=== PATIENT | male | born 1970 | race Caucasian/White ===

== ENCOUNTER 2019-01-11 14:17 | Emergency (ER) | payer SELFPAY ==
[~2019-01-11] VITALS: Ht 172.7 cm; Wt 78.3 kg
[2019-01-11 14:33] VITALS: Ht 172.7 cm; Wt 78.3 kg
[2019-01-11] MEDS ORDERED: LIDOCAINE 1% (MDV) 10 ML INJ INJ STA (17:01)
[2019-01-11] MEDS ORDERED: KETOROLAC 30 MG INJ IM STA (17:01)
[2019-01-11] MEDS ORDERED: LIDOCAINE 1% (MDV) 20 ML INJ SC ONE (17:30)
--- NOTE | 2019-01-11 18:33 | ERD ---
ER Documentation Chief Complaint Chief Complaint Left 2nd digit laceration while cutting with knife HPI 48-year-old male no significant past medical or surgical history who presents emergency room after sustaining a laceration to the 2nd digit of L hand. 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 At time of evaluation patient neurovascularly intact with sensation to light touch to the right hand along all distributions. The finger without issue. States pain is about 7 out of 10 to finger. He otherwise is without complaint. Reports all vaccinations up-to-date reports no allergies to any medications. ROS All systems reviewed and are negative except as per history of present illness. Allergies Allergies: Coded Allergies: No Known Allergy (Unverified , 01/11/19) FmHx Family History: No diabetes, No coronary disease, No other Physical Exam Vitals Vital Signs Date Temp Pulse Resp B/P (MAP) Pulse Ox O2 O2 Flow FiO2 Time Delivery Rate 01/11/19 99.2 74 20 165/91 97 14:33 (115) Physical Exam I have reviewed the triage vital signs. Const: Well nourished, well developed, appears stated age HENT: NCAT, Neck supple without meningismus CV: RRR, Warm, well-perfused extremities RESP: CTAB, Unlabored respiratory effort GI: soft, non-tender, non-distended, no masses MSK: No gross deformities appreciated Skin: Warm, dry. No rashes, laceration to 2nd digit of L hand approx 1 1/2 cm, moving finger pre and post suture, SILT pre anesthesia throughout, good distal perfusion to L 2nd digit Psych: Appropriate mood and affect. Results 24 hrs Current Medications Medications Dose Sig/Azeb Start Time Status Last (Trade) Ordered Route PRN Stop Time Admin Dose Reason Admin Lidocaine 10 ml ONCE STAT 01/11/19 DC HCl INJ 17:01 (Lidocaine 01/11/19 17:12 1% (Mdv) 10 ml) Ketorolac 30 mg ONCE STAT 01/11/19 DC 01/11/19 Tromethamine IM 17:01 17:13 (Toradol) 01/11/19 17:04 Lidocaine 20 ml ONCE ONCE 01/11/19 DC (Xylocaine SC 17:30 1% (Mdv) 20 01/11/19 17:31 ml) Procedures/MDM Laceration Repair by me: Anesthesia: 1% lidocaine locally Location: 2nd digit L hand Tendon/Joint/Nerves: No injury Foreign body: None detected after copious irrigation and exploration Technique: Simple Interrupted Sutures Complexity: No subcutaneous sutures/mucosal repair/edge excision Post Closure Length: 1 1/2 cm Patient's bleeding was easily controlled in the department and there is no indication of anemia. No evidence of compartment syndrome, neurologic injury, vascular injury, open joint, tendon laceration, or foreign body. Patient is appropriate for outpatient follow up. 48 hour wound check. Scar minimization instructions given. Departure Condition: Stable Patient Instructions: Laceration (Sure+Close) JOSE C BROWN PA-C Jan 11, 2019 18:32
[2019-01-11] MEDS ORDERED: HYDR-4011 PO (18:36)
[2019-01-11 19:10] VITALS: BP 162/75; PULSE 70; RESP 20
== END 2019-01-11 19:10 | disposition home or self-care (01) ==
LOC: FTE 14:17
DX: S61.211A Laceration without foreign body of left index finger without damage to nail, initial encounter (principal); W26.0XXA Contact with knife, initial encounter; Y92.89 Other specified places as the place of occurrence of the external cause
CPT/HCPCS: 12001; 96372; 99284; J1885

== ENCOUNTER 2019-01-13 11:53 | Emergency (ER) | payer SELFPAY ==
[~2019-01-13] VITALS: Wt 78.7 kg
[~2019-01-13 11:53] MED LIST: HYDR-4011 PO
[2019-01-13 11:55] VITALS: BP 150/91; PULSE 79; RESP 17
--- NOTE | 2019-01-13 13:27 | ERD ---
ER Documentation Chief Complaint Chief Complaint WOUND CHECK ON LEFT INDEX FINGER LAC REPAIR HPI Patient is a 48-year-old male who presents the ER for wound check. Patient was here 2 days ago for suture repair. 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 Patient states he has had some stiffness when bending his finger. Patient states that past visit he received a shot and he assumed it was a tetanus shot. Patient is right-hand dominant. Patient denies fevers or chills. Patient denies any discharge from the wound. ROS All systems reviewed and are negative except as per history of present illness. Medications Home Meds Active Scripts Hydrocodone/Acetaminophen ([place] 5-325 Tablet) 1 Each Tablet, 1 TAB PO Q6H PRN for PAIN LEVEL 6-10, #7 TAB Prov:JOSE C BROWN PA-C 01/11/19 Allergies Allergies: Coded Allergies: No Known Allergy (Unverified , 01/11/19) PMhx/Soc Medical and Surgical Hx: pt denies Medical Hx, pt denies Surgical Hx History of Surgery: No Anesthesia Reaction: No Hx Neurological Disorder: No Hx Respiratory Disorders: No Hx Cardiac Disorders: No Hx Psychiatric Problems: No Hx Miscellaneous Medical Probl: Yes (Lac) Hx Alcohol Use: No Hx Substance Use: No Hx Tobacco Use: No FmHx Family History: No diabetes Physical Exam Vitals Vital Signs Date Temp Pulse Resp B/P (MAP) Pulse Ox O2 O2 Flow FiO2 Time Delivery Rate 01/13/19 98.6 79 17 150/91 98 11:55 (110) Physical Exam GENERAL: Well-developed, well-nourished male. Appears in no acute distress. HEAD: Normocephalic, atraumatic. EYES: Pupils are equally reactive bilaterally. EOMs grossly intact. No conjunctival erythema. NECK: Supple. No meningismus. Normal range of motion of the neck. LUNG: Clear to auscultation bilaterally. No rhonchi, wheezing, rales or coarse breath sounds. HEART: Regular rate and rhythm. No murmurs, rubs or gallops. EXTREMITIES: Equal pulses bilaterally. No peripheral clubbing, cyanosis or edema. No unilateral leg swelling. NEUROLOGIC: Alert and oriented. Moving all four extremities without any difficulty. Normal speech. Steady gait. SKIN: Healing laceration with 10 sutures noted to the volar surface of the DIPJ of the left index finger. Patient has difficulty moving at the DIP joint. Patient able to bend at PIP and MCP joint without any difficulty. Neurovascular intact. Normal cap refill. Sensation intact light touch. Results 24 hrs Current Medications Medications Dose Sig/Azeb Start Time Status Last (Trade) Ordered Route PRN Stop Time Admin Dose Reason Admin Diphtheria/ 0.5 ml ONCE ONCE 01/13/19 Tetanus/Acell IM* 13:30 Pertussis 01/13/19 13:31 (Adacel) Procedures/MDM MEDICAL DECISION MAKING: This is a 48-year-old male presents the ER for concerns of wound check to his left index finger after suture repair 2 days ago.. Vital signs were reviewed. Patient is afebrile. The wound appears to be healing well with no concerns of acute infection at this time. Patient did have some difficulty bending at the DIP joint of the left index finger. Patient states he is unsure if he was able to bend it. Patient also states he received a shot at his last visit however he is unsure if he is up-to-date with his tetanus shot. Review of the records show that patient was given Toradol. Patient will be given tetanus vaccine today. Patient advised to follow-up with [facility], referral information provided. Unable to rule out any ligament or tendon injuries at this time. Suture removal advised in 5-7 days. DISCHARGE: At this time, the patient is stable for discharge and outpatient management. Post-procedural wound care was discussed with the patient. I have instructed the patient to promptly return to the ER for any new or worsening symptoms including increasing pain, fever, warmth, redness or swelling. The patient and/or family expressed understanding of and agreement with this plan. All questions were answered. Home care instructions were provided. Disclaimer: Inadvertent spelling and grammatical errors are likely due to EHR/dictation software use and do not reflect on the overall quality of patient care. Also, please note that the electronic time recorded on this note does not necessarily reflect the actual time of the patient encounter. Departure Diagnosis: Primary Impression: Encounter for wound re-check Condition: Stable Patient Instructions: Wound Check, Lac F/U (No Infection) Referrals: COMMUNITY CLINICS YOU HAVE RECEIVED A MEDICAL SCREENING EXAM AND THE RESULTS INDICATE THAT YOU DO NOT HAVE A CONDITION THAT REQUIRES URGENT TREATMENT IN THE EMERGENCY DEPARTMENT. FURTHER EVALUATION AND TREATMENT OF YOUR CONDITION CAN WAIT UNTIL YOU ARE SEEN IN YOUR DOCTORS OFFICE WITHIN THE NEXT 1-2 DAYS. IT IS YOUR RESPONSIBILITY TO MAKE AN APPOINTMENT FOR FOLOW-UP CARE. IF YOU HAVE A PRIMARY DOCTOR --you should call your primary doctor and schedule an appointment IF YOU DO NOT HAVE A PRIMARY DOCTOR YOU CAN CALL OUR PHYSICIAN REFERRAL HOTLINE AT IF YOU CAN NOT AFFORD TO SEE A PHYSICIAN YOU CAN CHOSE FROM THE FOLLOWING [facility] [address] [place] [facility] [address] [facility] [address] [facility] [address] [facility] [address] [facility]. [facility] [address] [facility]. [facility] YOU HAVE RECEIVED A MEDICAL SCREENING EXAM AND THE RESULTS INDICATE THAT YOU DO NOT HAVE A CONDITION THAT REQUIRES URGENT TREATMENT IN THE EMERGENCY DEPARTMENT. FURTHER EVALUATION AND TREATMENT OF YOUR CONDITION CAN WAIT UNTIL YOU ARE SEEN IN YOUR DOCTORS OFFICE WITHIN THE NEXT 1-2 DAYS. IT IS YOUR RESPONSIBILITY TO MAKE AN APPOINTMENT FOR FOLOW-UP CARE. IF YOU HAVE A PRIMARY DOCTOR --you should call your primary doctor and schedule and appointment IF YOU DO NOT HAVE A PRIMARY DOCTOR YOU CAN CALL OUR PHYSICIAN REFERRAL HOTLINE AT . IF YOU CAN NOT AFFORD TO SEE A PHYSICIAN YOU CAN CHOSE FROM THE FOLLOWING [facility] INSTITUTIONS: [facility] [address] [place] [address] [facility] [address] [place] [address] [facility] [address] [place] [address] [facility] Additional Instructions: Follow up with [facility] to rule out tendon injury. Call your primary care doctor TOMORROW for an appointment during the next 1-2 days.See the doctor sooner or return here if your condition worsens before your appointment time. ALLEN REDDY PA-C Jan 13, 2019 13:27
[2019-01-13] MEDS ORDERED: DIPHTH/TET/ACEL PERTUSS (ADULT) 0.5 ML VIAL IM* ONE (13:30)
== END 2019-01-13 13:53 | disposition home or self-care (01) ==
LOC: FTE 11:53
DX: Z48.01 Encounter for change or removal of surgical wound dressing (principal)
CPT/HCPCS: 90471; 90715